=== PATIENT | female | born 1960 | race Caucasian/White ===

== ENCOUNTER 2024-12-04 18:02 | Emergency (ER) | payer OTHER ==
[~2024-12-04] VITALS: Ht 160 cm; Wt 71.0 kg
[~2024-12-04 18:02] MED LIST: HYDR-1421; LORA-205; PRILOSEC PO; QUET100T38; RANI-185 PO; SIMV20TA20 PO
--- NOTE | 2024-12-04 18:43 | ED.PDOC ---
HPI (NEURO) HPI Comments 63-year-old female brought in by ambulance from home after the has been found her mildly lethargic and confused today. Has been states that she had a few ground level falls but did not have any major injuries over the last 1 day. Has been states that she has a history of depression and anxiety. states that she had a similar episode a few years ago where they found some fluid on her brain Chief Complaint: ALOC Time Seen by MD: 18:30 Primary Care Provider: STEWART Reviewed Notes: Nurses Notes, Sales Person Notes Information Source: Patient, Emergency Med Personnel Mode of Arrival: EMS Severity: Moderate, Severe Dizziness/Weakness Severity: Unable to do activities Timing: Hours, Days Duration: Since onset Past Medical History PAST MEDICAL HISTORY: Anxiety, Depression Surgical History: Hysterectomy PEDICAB DRIVER History: No Pertinent PEDICAB DRIVER History Family History Family History: Unknown Social History Smoker: Cigarettes, Less Than 1 Pack/Day Alcohol: Denies ETOH Use Drugs: Marijuana Lives In: Home Constitutional: reports: fatigue, weakness Unable to Obtain due to: Altered Mental Status Physical Exam Exam Comments Obese, lethargic but answers basic questions when aroused General Appearance: Moderate Distress HEENT: Normal ENT Inspection, Pharynx Normal, TMs Normal Neck: Full Range of Motion, Non-Tender, Normal, Normal Inspection Respiratory: Chest Non-Tender, Lungs Clear, No Accessory Muscle Use, No Respiratory Distress, Normal Breath Sounds Cardiovascular: No Edema, No JVD, No Murmur, No Gallop, Normal Peripheral Pulses, Regular Rate/Rhythm Breast Exam: Deferred Gastrointestinal: No Organomegaly, Non Tender, No Pulsatile Mass, Normal Bowel Sounds, Soft Genitalia: Deferred Pelvic: Deferred Rectal: Deferred Extremities: No calf tenderness, Normal capillary refill, Normal inspection, Normal range of motion, Non-tender, No pedal edema Musculoskeletal : Apperance: Normal Neurologic: Other (Lethargic but arousable. Answers basic questions appropriately went aroused) Cerebellar Function: Normal Reflexes: Normal Skin: Dry, Normal Color, Warm Lymphatic: No Adenopathy Was a procedure done? Was a procedure done?: No Differential Diagnosis (SZ) Seizure: Psychogenic Seizure, Alcohol Withdrawl, Closed Head Injury, CVA/TIA, Drug Ingestion, Hypocalcemia, Hypoglycemia, Hypoxemia, Mass Lesion, Meningitis, Syncope, Encephalopathy, Other X-Ray, Labs, Meds, VS Vital Signs Date Time Temp Pulse Resp B/P (MAP) Pulse Ox O2 Delivery O2 Flow Rate FiO2 12/04/24 21:17 83 12/04/24 19:57 92 20 95 Room Air* 0 21 12/04/24 19:57 98.5 92 20 95 98.5 12/04/24 18:26 98.9 97 18 180/129 95 98.9 Lab Test 12/04/24 20:58 12/04/24 19:51 12/04/24 18:46 Range/Units Urine Color Pending Urine Clarity Pending Urine pH Pending Urine Specific Woodruff Pending Urine Protein Pending Urine Ketones Pending Urine Blood Pending Urine Nitrite Pending Urine Bilirubin Pending Urine Urobilinogen Pending Urine Leukocyte Esterase Pending Urine RBC Pending Urine Microscopic WBC Pending Urine Squamous Epithelial Cells Pending Urine Bacteria Pending Urine Glucose Pending Urine Opiates Screen Pending Urine Fentanyl Screen Pending Urine Barbiturates Screen Pending Urine Phencyclidine Screen Pending Urine Amphetamines Screen Pending Urine Benzodiazepines Screen Pending Urine Cocaine Screen Pending Urine Cannabinoids Screen Pending Troponin I High Sensitivity 5 5 </=34 ng/L White Blood Count 5.5 4.4-10.8 10^3/uL Red Blood Count 4.67 4.0-5.20 10^6/uL Hemoglobin 14.6 12.2-16.2 g/dL Hematocrit 42.9 36.0-46.0 % Mean Corpuscular Volume 91.9 80.0-100.0 fL Mean Corpuscular Hemoglobin 31.4 28.0-32.0 pg Mean Corpuscular Hemoglobin Concent 34.1 32.0-36.0 g/dL Red Cell Distribution Width 14.2 11.8-14.3 % Platelet Count 166 140-450 10^3/uL Mean Platelet Volume 8.4 6.9-10.8 fL Neutrophils (%) (Auto) 59.2 37.0-80.0 % Lymphocytes (%) (Auto) 33.2 10.0-50.0 % Monocytes (%) (Auto) 5.8 0.0-12.0 % Eosinophils (%) (Auto) 1.4 0.0-7.0 % Basophils (%) (Auto) 0.4 0.0-2.0 % Neutrophils # (Auto) 3.2 1.6-8.6 10 ^3/uL Lymphocytes # (Auto) 1.8 0.4-5.4 10 ^3/uL Monocytes # (Auto) 0.3 0-1.3 10 ^3/uL Eosinophils # (Auto) 0.1 0-0.8 10 ^3/uL Basophils # (Auto) 0 0-0.2 10 ^3/uL Nucleated Red Blood Cells 0.1 % Prothrombin Time 10.1 9.3-11.8 sec Prothrombin Time INR 0.95 0.9-1.15 Activated Partial Thromboplast Time 26.7 24.5-34.5 SEC Sodium Level 146 H 136-145 mmol/L Potassium Level 3.8 3.5-5.1 mmol/L Chloride Level 109 H 98-107 mmol/L Carbon Dioxide Level 27 20-31 mmol/L Anion Gap 10 5-15 Blood Urea Nitrogen 7 L 9-23 mg/dL Creatinine 0.96 0.550-1.02 mg/dL Glomerular Filtration Rate Calc 66 >90 mL/min BUN/Creatinine Ratio 7.3 L 10.0-20.0 Serum Glucose 110 H 74-106 mg/dL Lactic Acid Level 2.1 *H 0.4-2.0 mmol/L Calcium Level 8.8 8.7-10.4 mg/dL Magnesium Level 1.8 1.6-2.6 mg/dL Total Bilirubin 0.4 0.2-1.0 mg/dL Aspartate Amino Transferase (AST) 19 13-40 U/L Alanine Aminotransferase (ALT) 18 7-40 U/L Alkaline Phosphatase 58 46-116 U/L Total Protein 6.8 5.7-8.2 g/dL Albumin 4.2 3.2-4.8 g/dL Plasma/Serum Blood Alcohol < 3.0 <10 mg/dL Current Medications Medications (Trade) Dose Ordered Sig/Lauren Route Start Time Stop Time Status Last Admin Haloperidol Lactate (Haldol) 10 mg ONCE ONCE IM 12/04/24 19:15 12/04/24 19:16 DC 12/04/24 19:37 Lorazepam (Ativan Inj) 1 mg ONCE ONCE IM 12/04/24 19:15 12/04/24 19:16 DC 12/04/24 19:15 Diphenhydramine HCl (Benadryl Injection) 50 mg ONCE ONCE IM 12/04/24 19:15 12/04/24 19:16 DC 12/04/24 19:15 Time of 1ST Reevaluation: 18:41 Reevaluation 1ST: Unchanged Patient Education/Counseling: Diagnosis, Treatment Family Education/Counseling: No Family Present Departure 1 Departure Time of Disposition: 21:35 Impression: Primary Impression: Metabolic encephalopathy Additional Impressions: Dehydration Pneumonitis Disposition: ADMITTED INPATIENT Admit to: Med Surg Condition: Guarded Comments 63-year-old female coming from home with altered mental status. On her lab review she looks a little dehydrated with an elevated sodium of 146 and an elevated chloride of 109. Lactic acid slightly elevated 2.1. On her chest x- ray it looks like she might have a left-sided pneumonia. CT of the head shows no acute pathology. Patient was given IV fluids and IV Rocephin and azithrom ycin antibiotics. Patient will need admission for supportive care and further workup. Critical Care Note Critical Care Time?: Yes (35 min-critical care time only) Critical care comment: Total critical care time: Approximately 36 minutes Due to a high probability of clinically significant, life threatening deterioration, the patient required my highest level of preparedness to intervene emergently and I personally spent this critical care time directly and personally managing the patient. This critical care time included obtaining a history; examining the patient; pulse oximetry; ordering and review of studies; arranging urgent treatment with development of a management plan; evaluation of patient's response to treatment; frequent reassessment; and, discussions with other providers. This critical care time was performed to assess and manage the high probability of imminent, life-threatening deterioration that could result in multi-organ failure. It was exclusive of separately billable procedures and treating other patients. Stability Stability form required: No Heart Score Heart Score: Heart Score Response (Comments) Value History N/A 0 EKG N/A 0 Age N/A 0 Risk Factors N/A 0 Troponin N/A 0 Total 0 RAIMUNDO CAMILO MD Dec 04, 2024 18:43
[2024-12-04] MEDS: SODIUM CHLORIDE 0.9% 1,000 ML IVB ONE (18:45)
[2024-12-04 19:14] LABS: Hematocrit 42.9 % (36.0-46.0); Hemoglobin 14.6 g/dL (12.2-16.2); Mean Corpuscular Hemoglobin 31.4 pg (28.0-32.0); Mean Corpuscular Volume 91.9 fL (80.0-100.0); Nucleated Red Blood Cells % 0.1 %
[2024-12-04] MEDS: diphenhydrAMINE HCL 50 MG/1 ML VL IM ONE (19:15)
[2024-12-04] MEDS: LORazepam 2MG/ML-1ML VIAL IM ONE (19:15)
[2024-12-04 19:27] LABS: Alanine Aminotransferase 18 U/L (7-40); Albumin 4.2 g/dL (3.2-4.8); Alkaline Phosphatase 58 U/L (46-116); Anion Gap 10 (5-15); BUN/Creatinine Ratio 7.3 (10.0-20.0); Calcium 8.8 mg/dL (8.7-10.4); Carbon Dioxide 27 mmol/L (20-31); Magnesium 1.8 mg/dL (1.6-2.6); Potassium 3.8 mmol/L (3.5-5.1); Total Protein 6.8 g/dL (5.7-8.2)
[2024-12-04 19:28] LABS: Bilirubin, Total 0.4 mg/dL (0.2-1.0)
[2024-12-04 19:29] LABS: INR 0.95 (0.9-1.15); Partial Thromboplastin Time 26.7 SEC (24.5-34.5); Prothrombin Time 10.1 sec (9.3-11.8)
--- NOTE | 2024-12-04 19:29 | DVH ---
CHEST RADIOGRAPH Indication: SOB Technique: Single frontal view of the chest was obtained COMPARISON: None FINDINGS: Cardiac silhouette is borderline in size. Mild diffuse prominence of the pulmonary vasculature. Mild patchy opacity throughout the left lower lung. Bones and soft tissues demonstrate no significant abnormality. IMPRESSION: Mild pulmonary venous congestion. Mild patchy opacity throughout the left lower lung, nonspecific for atypical edema or pneumonia.
[2024-12-04 19:33] LABS: Blood Urea Nitrogen 7 mg/dL (9-23); Chloride 109 mmol/L (98-107); Glucose 110 mg/dL (74-106); Sodium 146 mmol/L (136-145)
[2024-12-04 19:35] LABS: Lactic Acid w/Reflex 2.1 mmol/L (0.4-2.0)
[2024-12-04] MEDS: HALOPERIDOL LACTATE 5 MG/ML INJ VIAL IM ONE (19:37)
[2024-12-04 19:57] VITALS: PULSE 92; RESP 20; O2SAT 95
--- NOTE | 2024-12-04 21:18 | DVH ---
EXAM: CT HEAD WITHOUT CONTRAST INDICATION: ALOC TECHNIQUE: CT of the head without intravenous contrast. Radiation Dose Information: CT Dose: CTDI volume is 52.79 mGy. Dose-length product is 844.7 mGy*cm The dose indicators for CT are the volume Computed Tomography (CT) Dose Index (CTDIvol) and the Dose Length Product (DLP), and are measured in units of mGy and mGy-cm, respectively. These indicators are not patient dose, but values generated from the CT scanner acquisition factors. The report includes radiation exposure data for exposures received during this examination. COMPARISON: None FINDINGS: There is no evidence of acute intracranial hemorrhage, extra-axial collection, mass effect, midline s hift, herniation or hydrocephalus. The ventricles, sulci and cisterns are age appropriate. The nolasco-white differentiation is intact. Patchy periventricular and subcortical white matter hypoattenuation is nonspecific but may be related to small vessel ischemic disease. The visualized paranasal sinuses and mastoid air cells are clear. The surrounding soft tissues and osseous structures are unremarkable. IMPRESSION: No acute intracranial abnormality.
[2024-12-04 21:53] LABS: Urine Protein, UAD Negative (Negative)
[2024-12-04 22:03] LABS: Cannabinoid Screen, Urine Pos (NEGATIVE)
[2024-12-04 22:07] LABS: Amphetamine Screen, Urine Neg (NEGATIVE); Barbiturate Scree,Urine Neg (NEGATIVE); Benzodiazephine Screen, Urine Pos (NEGATIVE); Cocaine Screen, Urine Neg (NEGATIVE); Opiate Scree,Urine Neg (NEGATIVE); Phencyclidine Screen, Urine Neg (NEGATIVE)
[2024-12-04] MEDS: hydrALAZINE HCL 20 MG/ML VL IV ONE (22:13)
[2024-12-04] MEDS: AZITHROMYCIN 500MG/ 250ML 250 ML IV ONE (22:44)
[2024-12-05 03:23] VITALS: PULSE 115; RESP 22; O2SAT 97
--- NOTE | 2024-12-05 08:29 | DVHDS2 ---
Physician Discharge Progress N Final Diagnosis: Cannabinoid abuse Operations or Procedures: Operations or Procedures none Other Interventions Other Interventions lab results, CT, XR Consultations: Consultations none Commentary: Commentary 63-year-old female with HTN was brought to the ER for AMS. Her stated that she fell at home without injuring herself. Patient had CT scan that showed no acute abnormalities. Her labs were also unremarkable except positive cannabinoids. In the ER nurse reported urinary retention, stating that after patient had a catheter placed and the large amount of urine was removed, patient mental status had improved. The urinary retention was possibly a side effect of cannabinoid abuse. UA showed no UTI. Patient was confused and restless for a few hours but it resolved and she was A&O x4 at the time of discharge. [facility] will schedule a follow up appointment with her PMD in 3 days. Condition on Discharge: Stable Disposition: Home Discharge Instructions: Diet: Cardiac 2g Na,low cholest Activity: No Restrictions, As Tolerated Follow Up/Referral: PMD in 3 days Medications: Continue home medications Follow Up Care: Discharge Statement: "Patient was advised to return to the ER or call 911 if any headaches, dizziness, shortness of breath, chest pain, abdominal pain, bleeding, fevers, or worsening of medical condition. Patient was counseled about treatment plan, medications, possible side effects, patientverbalized understanding. All questions were answered to the best of my ability. This discharge took greater then 30 minutes in planning, reviewing documentation, counseling the patient, and discussing with other team members." MARIBELL SAVAGE MD Dec 05, 2024 08:29
[2024-12-05] MEDS ORDERED: CIPR250T3 PO (08:32)
[2024-12-05] MEDS: METOPROLOL SUCCINATE XL 50 MG TAB PO ONE (08:56)
[2024-12-05 09:35] VITALS: BP 145/78; PULSE 102; RESP 18; TEMP 98.2; O2SAT 98
== END 2024-12-05 09:41 | disposition home or self-care (01) ==
LOC: ER 18:02 → EDBD 18:02 → ER 12-05 09:41
DX: G93.41 Metabolic encephalopathy (principal); E86.0 Dehydration; R06.02 Shortness of breath; J98.4 Other disorders of lung; F41.9 Anxiety disorder, unspecified; F17.210 Nicotine dependence, cigarettes, uncomplicated; I10 Essential (primary) hypertension; Z79.899 Other long term (current) drug therapy
CPT/HCPCS: 36415; 70450; 71045; 80053; 80307; 80320; 81001; 82947; 83605; 83735; 84484; 85025; 85610; 85730; 87040; 96361; 96365; 96366; 96368; 96372; 96375; 99285; J0360; J0456; J0696; J1200; J1630; J2060; J7030